=== PATIENT | male | born 1965 | race African-American/Black ===

== ENCOUNTER 2016-11-05 10:30 | Observation (INO) | payer BC ==
[~2016-11-05] VITALS: Ht 185.4 cm; Wt 70.0 kg
[~2016-11-05 10:30] MED LIST: BENZ100 PO
[2016-11-05 10:32] VITALS: BP 120/62; PULSE 86; RESP 16; TEMP 98; O2SAT 97
[2016-11-05 11:04] VITALS: BP 117/72; PULSE 74; RESP 20; TEMP 97.5; O2SAT 95
[2016-11-05 11:09] LABS: AUTOMATED NEUTROPHIL # 0.8 TH/MM3 (1.8-7.7); BASOPHIL % 0.8 % (0.0-2.0); EOSINOPHIL # 0.1 TH/MM3 (0-0.4); EOSINOPHIL % 2.1 % (0.0-4.0); LYMPH % 54.4 % (9.0-44.0); LYMPHOCYTE # 1.5 TH/MM3 (1.0-4.8); MEAN CELL VOLUME 100.6 FL (80.0-100.0); MEAN CORPUSCULAR HEMOGLOBIN 34.3 PG (27.0-34.0); MEAN CORPUSCULAR HGB CONC 34.1 % (32.0-36.0); MONO % 13.6 % (0.0-8.0); NEUT % 29.1 % (16.0-70.0); PLATELET COUNT 167 TH/MM3 (150-450); RED BLOOD COUNT 4.17 MIL/MM3 (4.50-5.90); RED CELL DISTRIBUTION WIDTH 12.8 % (11.6-17.2); WHITE BLOOD COUNT 2.8 TH/MM3 (4.0-11.0)
[2016-11-05 11:10] LABS: HEMO FLAGS AUTO DIFF
[2016-11-05 11:23] LABS: ANION GAP 7 MEQ/L (5-15); BICARBONATE 28.6 MEQ/L (21.0-32.0); BLOOD UREA NITROGEN 7 MG/DL (7-18); CHLORIDE 106 MEQ/L (98-107); GLOMERULAR FILTRATION RATE 144 ML/MIN (>89); POTASSIUM 3.7 MEQ/L (3.5-5.1); SODIUM (NA) 142 MEQ/L (136-145)
--- NOTE | 2016-11-05 11:23 | PD ---
HPI Chief Complaint: Cardiac Complaint Time Seen by Provider: 11:22 Travel History International Travel<30 days: No Contact w/Intl Traveler<30days: No Traveled to known affect area: No History of Present Illness HPI 50-year-old male presents to the emergency department for evaluation of cough, left anterior chest pain and shortness of breath. Patient states that yesterday he began to have a dry nonproductive cough. States that when he coughs he has some mild shortness of breath. States that yesterday he also began to experience intermittent left anterior chest pain. Describes it as sharp and lasting about 1-3 seconds. Denies any aggravating or alleviating factors. Denies any radiation of pain. Denies any associated lightheadedness, dizziness, nausea, vomiting, diaphoresis. The patient states he was seen here about a month ago for a cough and was told that he had bronchitis, states that his cough had resolved until yesterday. He does admit to smoking about a half a pack of cigarettes per day for the past 15 years but states he quit smoking 3 weeks ago. Denies any history of hypertension, hyperlipidemia or heart disease. Denies any family history of heart disease. Denies any history of blood clots. No other complaints. PFSH Past Medical History Autoimmune Disease: No Cancer: No Cardiovascular Problems: No Endocrine: No Genitourinary: No Musculoskeletal: No Neurologic: No Psychiatric: No Reproductive: No Respiratory: No Immunizations Current: Yes Influenza Vaccination: No Social History Alcohol Use: Yes (beer/daily) Tobacco Use: No (quit x 3 weeks) Substance Use: No (hx MARIJUANA) Allergies-Medications (Allergen,Severity, Reaction): Coded Allergies: No Known Allergies (Verified , 11/05/16) Reported Meds & Prescriptions Reported Meds & Active Scripts Active Tessalon Perles (Benzonatate) 100 Mg Cap 200 Mg PO TID PRN Review of Systems Except as stated in HPI: all other systems reviewed are Neg Physical Exam Narrative GENERAL: Well-nourished and well-developed pleasant male patient in no acute distress who is nontoxic appearing. SKIN: Warm and dry. HEAD: Normocephalic and atraumatic. EYES: No injection, drainage, or hyphema noted. PERRLA. EOMI. ENT: No nasal drainage noted. Oropharynx is clear. NECK: Supple and the trachea is midline. CARDIOVASCULAR: Regular rate and rhythm. RESPIRATORY: Breath sounds are equal bilaterally with no accessory muscle use, wheezing, rhonchi, or crackles. GASTROINTESTINAL: Abdomen is soft, non-tender, and nondistended. MUSCULOSKELETAL: No obvious deformities, swelling, cyanosis, or ecchymosis is present throughout the upper and lower extremities. Patient has full range of motion without any signs of neurovascular compromise. NEUROLOGICAL: Awake, alert, and oriented. Normal speech and gait. Cranial nerves are grossly intact. Data Data Last Documented VS Vital Signs Date Time Temp Pulse Resp B/P Pulse Ox O2 Delivery O2 Flow Rate FiO2 11/05/16 11:04 97.5 74 20 117/72 95 Room Air Orders Electrocardiogram (11/05/16 10:37) Complete Blood Count With Diff (11/05/16 10:37) Basic Metabolic Panel (Bmp) (11/05/16 10:37) Ckmb (Isoenzyme) Profile (11/05/16 10:37) Troponin I (11/05/16 10:37) Chest, Single Ap (11/05/16 10:37) Influenzae A/B Antigen (11/05/16 10:59) D-Dimer (11/05/16 11:23) Prothrombin Time / Inr (Pt) (11/05/16 11:23) Act Partial Throm Time (Ptt) (11/05/16 11:23) CKMB (11/05/16 10:52) CKMB% (11/05/16 10:52) Sodium Chlor 0.9% 1000 Ml Inj (Ns 1000 M (11/05/16 11:59) Aspirin (Aspirin) (11/05/16 12:45) Labs Laboratory Tests Test 11/05/16 11/05/16 10:52 11:34 White Blood Count 2.8 TH/MM3 Red Blood Count 4.17 MIL/MM3 Hemoglobin 14.3 GM/DL Hematocrit 42.0 % Mean Corpuscular Volume 100.6 FL Mean Corpuscular Hemoglobin 34.3 PG Mean Corpuscular Hemoglobin 34.1 % Concent Red Cell Distribution Width 12.8 % Platelet Count 167 TH/MM3 Mean Platelet Volume 9.1 FL Neutrophils (%) (Auto) 29.1 % Lymphocytes (%) (Auto) 54.4 % Monocytes (%) (Auto) 13.6 % Eosinophils (%) (Auto) 2.1 % Basophils (%) (Auto) 0.8 % Neutrophils # (Auto) 0.8 TH/MM3 Lymphocytes # (Auto) 1.5 TH/MM3 Monocytes # (Auto) 0.4 TH/MM3 Eosinophils # (Auto) 0.1 TH/MM3 Basophils # (Auto) 0.0 TH/MM3 CBC Comment AUTO DIFF Differential Total Cells 100 Counted Neutrophils % (Manual) 32 % Lymphocytes % 60 % Monocytes % 7 % Neutrophils # (Manual) 0.9 TH/MM3 Myelocytes 1 % Differential Comment FINAL DIFF MANUAL Platelet Estimate NORMAL Platelet Morphology Comment NORMAL Sodium Level 142 MEQ/L Potassium Level 3.7 MEQ/L Chloride Level 106 MEQ/L Carbon Dioxide Level 28.6 MEQ/L Anion Gap 7 MEQ/L Blood Urea Nitrogen 7 MG/DL Creatinine 0.70 MG/DL Estimat Glomerular Filtration 144 ML/MIN Rate Random Glucose 123 MG/DL Calcium Level 8.5 MG/DL Total Creatine Kinase 992 U/L Creatine Kinase MB 19.2 NG/ML Creatine Kinase MB % 1.9 % Troponin I LESS THAN 0.02 NG/ML Prothrombin Time 11.7 SEC Prothromb Time International 1.1 RATIO Ratio Activated Partial 25.0 SEC Thromboplast Time D-Dimer Quantitative (PE/DVT) 0.33 MG/L FEU MDM Medical Decision Making Medical Screen Exam Complete: Yes Emergency Medical Condition: Yes Differential Diagnosis Pleurisy versus bronchitis versus pneumonia versus ACS unlikely versus PE unlikely Narrative Course 50-year-old male presents to the emergency department for evaluation of cough and sharp chest pain. Patient is afebrile, vital signs are stable. Physical examination is unremarkable. Patient appears well overall. IV access is obtained, labs have been drawn and sent. EKG shows sinus rhythm with no acute ST elevations or depressions. I reviewed the EMR which shows he was admitted to our hospital 5 years ago for similar complaints with elevated CK, had a negative treadmill stress test at that time. He works in [employer] business has been slow recently and reports he remains hydrated throughout his day. Chest x-ray is negative for any acute abnormalities. CBC is unremarkable for any acute abnormalities. CMP shows elevated CK of 992, elevated CK-MB of 19.2 Troponin is less than 0.02 Coags are unremarkable. D-dimer is negative. Patient has remained stable and without complaint while here in the emergency department. Because the patient has a complaint of chest pain and an elevated CK and CK-MB he will need to be admitted for repeat cardiac enzymes and possible stress testing. Patient is agreeable with this plan. I discussed the case with my attending physician Dr. Rouse who is aware of the patients history, physical examination findings, and treatment plan. Physician Communication Physician Communication I spoke with Dr. Horan [facility] who agrees to admit the patient to his service. Diagnosis Primary Impression: Chest pain Qualified Code: R07.9 - Chest pain, unspecified type Additional Impression: Elevated CK-MB level Admitting Information Admitting Physician Requests: Observation Julissa Esparza Nov 05, 2016 11:23
[2016-11-05 11:27] LABS: CREATINE KINASE 992 U/L (39-308)
[2016-11-05 11:39] LABS: CKMB 19.2 NG/ML (0.5-3.6)
--- NOTE | 2016-11-05 11:49 | RADRPT ---
EXAM DATE/TIME: 11/05/2016 10:54 [facility] COMPARISON: CHEST SINGLE AP, March 03, 2016, 2:33. INDICATIONS : Chest pain. MEDICAL HISTORY : None. SURGICAL HISTORY : None. ENCOUNTER: Initial ACUITY: 2 days PAIN SCORE: 7/10 LOCATION: Left upper chest FINDINGS: A single view of the chest demonstrates the lungs to be symmetrically aerated without evidence of mas s, infiltrate or effusion. The cardiomediastinal contours are unremarkable. Osseous structures are intact. CONCLUSION: Normal examination. No significant change has occurred. Royer Hartley MD on November 05, 2016 at 11:47 Board Certified Radiologist. This report was verified electronically.
[2016-11-05 11:53] LABS: MYELOCYTES 1 % (0-0); NEUTROPHIL # MANUAL DIFF 0.9 TH/MM3 (1.8-7.7); POLYS (SEG NEUTROPHILS) 32 % (16-70); WBC DIFF SAMPLE 100
[2016-11-05 11:54] LABS: PLATELET ESTIMATE SMEAR NORMAL (NORMAL); PLATELET MORPHOLOGY NORMAL (NORMAL); SCAN/DIFF FINAL DIFF MANUAL
[2016-11-05] MEDS ORDERED: SODIUM CHLOR 0.9% 1000 ML INJ 1,000 ML IV SCH (11:59)
[2016-11-05 12:02] LABS: INTERNATIONAL NORMALIZED RATIO 1.1 RATIO; PROTHROMBIN TIME - PATIENT 11.7 SEC (9.8-11.6)
[2016-11-05] MEDS ORDERED: ASPIRIN 325 MG TAB PO ONE (12:45)
[2016-11-05] MEDS: ENOXAPARIN SODIUM 40 MG/0.4 ML SYRINGE SQ SCH ×2 (13:00→13:19)
[2016-11-05] MEDS ORDERED: SODIUM CHLORIDE 0.9% FLUSH 5 ML FLUSH FLUSH PRN (13:00)
[2016-11-05] MEDS ORDERED: ONDANSETRON HCL 4 MG/2 ML VIAL IVP PRN (13:00)
[2016-11-05] MEDS ORDERED: MAGNESIUM HYDROXIDE SUSP 30 ML CUP PO PRN (13:00)
[2016-11-05] MEDS ORDERED: BISACODYL 10 MG SUPP PR PRN (13:00)
[2016-11-05] MEDS ORDERED: ACETAMINOPHEN 325 MG TAB PO PRN (13:00)
[2016-11-05] MEDS ORDERED: NALOXONE HCL 0.4 MG/ML AMP IV PRN (13:00)
[2016-11-05] MEDS ORDERED: guaiFENesin/CODEINE SYRUP 200 MG/20 MG/10 ML CUP PO PRN (13:15)
[2016-11-05] MEDS ORDERED: RESP: ALBUTEROL 2.5 MG/IPRATROPIUM 0.5 MG NEB (PRN) NEB (13:15)
[2016-11-05] MEDS ORDERED: AZITHROMYCIN 250 MG TAB PO ONE ×2 (14:30→16:00)
--- NOTE | 2016-11-05 14:54 | EKG ---
Date Performed: 11/05/2016 Time Performed: 10:46:46 PTAGE: 50 years EKG: Sinus rhythm LEFT ATRIAL ENLARGEMENT ABNORMAL ECG NO SIGNIFICANT CHANGE FROM PRIOR ELECTROCARDIOGRAM. PREVIOUS TRACING : 03/03/2016 02.37 DOCTOR: Lorenzo Olvera Interpretating Date/Time 11/05/2016 14:53:23
--- NOTE | 2016-11-05 16:34 | HHI.HP ---
[facility] Service [facility] Primary Care Physician No Primary Care Physician Admission Diagnosis Chest Pain, Elevated CK-MB Diagnoses: Chief Complaint: Chest pain Travel History International Travel<30 Days: No Contact w/Intl Traveler <30 Da: No Traveled to Known Affected Are: No History of Present Illness This is a 50-year-old patient who denies prior medical history. Patient reports approximately a month ago October 08, 2016 he was seen in the emergency department for cough and given Tessalon Perles. Patient reports he completed the Tessalon Perles 3 days ago and his cough returned. Patient reports his cough is productive of phlegm with black specks. Patient also quit smoking October 08, 2016. Patient does report occasional shortness of breath but does not seem to be related to exertion seems to be worse after coughing. Patient reports today while he was sitting at rest watching television he experienced left sided chest pain described as sharp and severe in nature last for approximately 15 seconds and resolves spontaneously. Patient denies radiation of the chest pain patient also denies associated symptoms such as shortness of breath nausea vomiting diaphoresis. Patient reports he was seen approximately 5 years ago for similar symptoms with no definite explanation of symptoms. Patient denies fevers chills nausea vomiting diarrhea constipation. Patient works as a major sales associate and does not experience chest pain or shortness of breath while working. Review of Systems Other All other systems reviewed and negative except as mentioned in history of present illness Past Family Social History Past Medical History Denies medical history does not take medications on daily basis Past Surgical History Denies prior surgeries Reported Medications Reports he does not take medications on a daily basis Does take Aleve occasionally for headache Allergies: Coded Allergies: No Known Allergies (Verified , 11/05/16) Active Ordered Medications Current Medications Medications (Trade) Dose Ordered Sig/Arti Route Start Time Stop Time Status Last Admin (NS Flush) 2 ml UNSCH PRN FLUSH 11/05/16 13:00 (NS Flush) 2 ml BID FLUSH 11/05/16 21:00 (Tylenol) 650 mg Q4H PRN PO 11/05/16 13:00 (Zofran Inj) 4 mg Q6H PRN IVP 11/05/16 13:00 (Dulcolax Supp) 10 mg DAILY PRN [place] 11/05/16 13:00 (Milk Of Magnesia Liq) 30 ml Q12H PRN PO 11/05/16 13:00 (Lovenox Inj) 40 mg Q24H SQ 11/05/16 13:00 (Narcan Inj) 0.4 mg UNSCH PRN IV 11/05/16 13:00 (Robitussin Ac 200-20 Mg/10 ml Liq) 10 ml Q6H PRN PO 11/05/16 13:15 (Aspirin) 325 mg DAILY PO 11/06/16 09:00 (Zithromax) 250 mg DAILY PO 11/06/16 09:00 11/10/16 08:59 Family History Father secondary to bronchitis and emphysema Social History Patient quit smoking October 08, 2016 Drinks 4 pack of beers per day Physical Exam Vital Signs Vital Signs Date Time Temp Pulse Resp B/P Pulse Ox O2 Delivery O2 Flow Rate FiO2 11/05/16 11:04 97.5 74 20 117/72 95 Room Air 11/05/16 10:32 98.0 86 16 120/62 97 Room Air Physical Exam GENERAL: This is a well-nourished, well-developed patient, in no apparent distress. SKIN: No rashes, ecchymoses or lesions. Cool and dry. NECK: Trachea midline. No JVD or lymphadenopathy. Supple, nontender, no meningeal signs. CARDIOVASCULAR: Regular rate and rhythm without murmurs, gallops, or rubs. RESPIRATORY: Clear to auscultation. Breath sounds equal bilaterally. No wheezes , rales, or rhonchi. GASTROINTESTINAL: Abdomen soft, non-tender, nondistended. No guarding. MUSCULOSKELETAL: Extremities without clubbing, cyanosis, or edema. No joint tenderness, effusion, or edema noted. No calf tenderness. Negative Homans sign bilaterally. NEUROLOGICAL: Awake and alert. No focal deficit appreciated. Motor and sensory grossly within normal limits. Five out of 5 muscle strength in all muscle groups. Normal speech. Laboratory Laboratory Tests Test 11/05/16 11/05/16 10:52 11:34 White Blood Count 2.8 Red Blood Count 4.17 Hemoglobin 14.3 Hematocrit 42.0 Mean Corpuscular Volume 100.6 Mean Corpuscular Hemoglobin 34.3 Mean Corpuscular Hemoglobin 34.1 Concent Red Cell Distribution Width 12.8 Platelet Count 167 Mean Platelet Volume 9.1 Neutrophils (%) (Auto) 29.1 Lymphocytes (%) (Auto) 54.4 Monocytes (%) (Auto) 13.6 Eosinophils (%) (Auto) 2.1 Basophils (%) (Auto) 0.8 Neutrophils # (Auto) 0.8 Lymphocytes # (Auto) 1.5 Monocytes # (Auto) 0.4 Eosinophils # (Auto) 0.1 Basophils # (Auto) 0.0 CBC Comment AUTO DIFF Differential Total Cells 100 Counted Neutrophils % (Manual) 32 Lymphocytes % 60 Monocytes % 7 Neutrophils # (Manual) 0.9 Myelocytes 1 Differential Comment FINAL DIFF MANUAL Platelet Estimate NORMAL Platelet Morphology Comment NORMAL Sodium Level 142 Potassium Level 3.7 Chloride Level 106 Carbon Dioxide Level 28.6 Anion Gap 7 Blood Urea Nitrogen 7 Creatinine 0.70 Estimat Glomerular Filtration 144 Rate Random Glucose 123 Calcium Level 8.5 Total Creatine Kinase 992 Creatine Kinase MB 19.2 Creatine Kinase MB % 1.9 Troponin I LESS THAN 0.02 Prothrombin Time 11.7 Prothromb Time International 1.1 Ratio Activated Partial 25.0 Thromboplast Time D-Dimer Quantitative (PE/DVT) 0.33 Date/Time Procedure Status Source Growth 11/05/16 11:43 Influenza Types A,B Antigen (JERALD) - Final Complete Nasal Washing NEGATIVE FOR FLU A AND B ANTIGEN.... Result Diagram: 11/05/16 1052 11/05/16 1052 Imaging Last Impressions Chest X-Ray 11/05/16 1037 Signed Impressions: Service Date/Time: Saturday, November 05, 2016 10:54 - CONCLUSION: Normal examination. No significant change has occurred. Royer Hartley MD Assessment and Plan Assessment and Plan This is a 50-year-old patient who denies prior medical history. Patient reports approximately a month ago October 08, 2016 he was seen in the emergency department for cough and given Tessalon Perles. Patient reports he completed the Tessalon Perles 3 days ago and his cough returned. Patient reports his cough is productive of phlegm with black specks. Patient also quit smoking October 08, 2016. Patient does report occasional shortness of breath but does not seem to be related to exertion seems to be worse after coughing. Patient reports today while he was sitting at rest watching television he experienced left sided chest pain. Chest pain rule out ACS Receiving aspirin in the emergency department will continue aspirin daily Continuous telemetry monitoring EKG reviewed by myself as well as Dr. Horan reveals sinus rhythm with and T- wave inversion in V1 and V2 Lipid panel in a.m. Plan on exercise stress test in a.m. Elevated total creatinine kinase 990 will recheck in a.m. Cough times one month Sputum culture Azithromycin by mouth Robitussin Duo nebs as needed DVT prophylaxis with Lovenox Discussed plan of care with patient, ER provider and RN Written by Olga Prasad, acting as scribe for Dr. Horan on 11/05/16 at 15 :34. The documentation accurately reflects the work performed [id number] by me on at 15:34. Olga Prasad Nov 05, 2016 16:34 Snehal Horan DO Nov 05, 2016 23:17
[2016-11-05 17:53] VITALS: BP 142/83; PULSE 63; O2SAT 95
[2016-11-05 19:32] VITALS: BP 129/70; PULSE 65; O2SAT 98
[2016-11-05 21:23] VITALS: BP 129/76; PULSE 61; RESP 18; TEMP 97.6; O2SAT 98
[2016-11-05] MEDS: SODIUM CHLORIDE 0.9% FLUSH 5 ML FLUSH FLUSH SCH (23:36)
[2016-11-06 00:20] VITALS: BP 128/76; PULSE 84; RESP 18; TEMP 97.9; O2SAT 97
[2016-11-06 04:47] VITALS: BP 129/76; PULSE 87; RESP 18; TEMP 97.8; O2SAT 97
[2016-11-06 08:04] VITALS: PULSE 60
[2016-11-06] MEDS: SODIUM CHLORIDE 0.9% FLUSH 5 ML FLUSH FLUSH SCH (08:13)
--- NOTE | 2016-11-06 08:20 | HHI.PR ---
Subjective Remarks Follow up for left sided sharp chest pain. No acute concerns. Denies any CP, SOB , fever, chills. Objective Vitals Vital Signs Date Time Temp Pulse Resp B/P Pulse Ox O2 Delivery O2 Flow Rate FiO2 11/06/16 04:47 97.8 87 18 129/76 97 11/06/16 00:20 97.9 84 18 128/76 97 11/05/16 21:23 97.6 61 18 129/76 98 11/05/16 19:33 67 16 98 Room Air 11/05/16 19:32 65 129/70 98 11/05/16 17:53 63 142/83 95 11/05/16 11:04 97.5 74 20 117/72 95 Room Air 11/05/16 10:32 98.0 86 16 120/62 97 Room Air Result Diagram: 11/05/16 1052 11/05/16 1052 Imaging Last Impressions Chest X-Ray 11/05/16 1037 Signed Impressions: Service Date/Time: Saturday, November 05, 2016 10:54 - CONCLUSION: Normal examination. No significant change has occurred. Royer Hartley MD Objective Remarks GENERAL: AOX3, NAD. SKIN: Warm and dry. HEAD: Normocephalic. EYES: No scleral icterus. No injection or drainage. NECK: Supple, trachea midline. No JVD or lymphadenopathy. CARDIOVASCULAR: Regular rate and rhythm without murmurs, gallops, or rubs. RESPIRATORY: Breath sounds equal bilaterally. No accessory muscle use. GASTROINTESTINAL: Abdomen soft, non-tender, nondistended. MUSCULOSKELETAL: No cyanosis, or edema. BACK: Nontender without obvious deformity. No CVA tenderness. Procedures Exercise stress test 11/06/2016. Normal stress test. A/P Assessment and Plan This is a 50-year-old patient who denies prior medical history. Patient reports approximately a month ago October 08, 2016 he was seen in the emergency department for cough and given Tessalon Perles. Patient reports he completed the Tessalon Perles 3 days ago and his cough returned. Patient reports his cough is productive of phlegm with black specks. Patient also quit smoking October 08, 2016. Patient does report occasional shortness of breath but does not seem to be related to exertion seems to be worse after coughing. Patient reports today while he was sitting at rest watching television he experienced left sided chest pain. Chest pain rule out ACS - Continue Aspirin 81mg Qday. - Troponins X 3 negative. - Normal stress test. - Acute bronchitis - we will finish course of Azithromycin - 3 more days of 250mg Qday. - Robitussin AC PRN. DVT prophylaxis with Lovenox while in the hospital. Discharge patient to home Condition on discharge: Improved Heart healthy Diet as tolerated Ad Angely activity Rx written: - Aspirin 81mg Qday. - Azithromycin 250mg Qday x 3 days - Robitussin AC PRN Follow-up with primary care physician within one week. Snehal Horan DO Nov 06, 2016 08:20
[2016-11-06 08:25] VITALS: BP 150/85; PULSE 65; RESP 18; O2SAT 98
[2016-11-06] MEDS ORDERED: AZITHROMYCIN 250 MG TAB PO SCH (09:00)
[2016-11-06] MEDS ORDERED: ASPIRIN 325 MG TAB PO SCH (09:00)
[2016-11-06 10:51] LABS: AUTOMATED NEUTROPHIL # 1.3 TH/MM3 (1.8-7.7); BASOPHIL % 0.7 % (0.0-2.0); EOSINOPHIL # 0.1 TH/MM3 (0-0.4); EOSINOPHIL % 1.7 % (0.0-4.0); HEMO FLAGS DIFF FINAL; LYMPH % 41.2 % (9.0-44.0); LYMPHOCYTE # 1.3 TH/MM3 (1.0-4.8); MEAN CELL VOLUME 101.9 FL (80.0-100.0); MEAN CORPUSCULAR HEMOGLOBIN 34.4 PG (27.0-34.0); MEAN CORPUSCULAR HGB CONC 33.8 % (32.0-36.0); MONO % 13.6 % (0.0-8.0); NEUT % 42.8 % (16.0-70.0); PLATELET COUNT 168 TH/MM3 (150-450); RED BLOOD COUNT 4.52 MIL/MM3 (4.50-5.90); RED CELL DISTRIBUTION WIDTH 12.8 % (11.6-17.2); WHITE BLOOD COUNT 3.1 TH/MM3 (4.0-11.0)
[2016-11-06 11:14] LABS: BICARBONATE 30.6 MEQ/L (21.0-32.0); POTASSIUM 3.9 MEQ/L (3.5-5.1)
[2016-11-06 11:18] LABS: HDL CHOLESTEROL 71.7 MG/DL (40.0-60.0)
[2016-11-06 11:43] LABS: CKMB 15.9 NG/ML (0.5-3.6)
[2016-11-06 12:23] VITALS: BP 134/72; PULSE 60; RESP 20; O2SAT 95
[2016-11-06] MEDS: ENOXAPARIN SODIUM 40 MG/0.4 ML SYRINGE SQ SCH (13:00)
--- NOTE | 2016-11-06 14:26 | TR ---
Date Performed: 11/06/2016 Time Performed: 13:40:20 DOCTOR: Darryn Michel DRUG LIST: CLINICAL HISTORY: CHEST PAIN REASON FOR TEST: REASON FOR ENDING: OBSERVATION: CONCLUSION: YARED PROTOCOL. NO CP. TEST STOPPED AFTER EXCEEDING GOAL HR SECONDARY TO SOB AND LEG FATIGUE. GOOD EXERCISE TOLERANCE.Maximum YM=868 % Max HR Umulkjng=856.0% Maximum WY=995/74 Total Exe rcise Time=10:00 COMMENTS: Patient exercised using the Yared protocol. No electrocardiographic changes were seen to suggest ischemia. Hemodynamic response to exercise was normal. No significant arrhythmia was prese nt.
[2016-11-06 15:39] VITALS: BP 126/67; PULSE 60; RESP 18; O2SAT 95
[2016-11-06] MEDS ORDERED: ASPI81TA11 PO (15:43)
[2016-11-06] MEDS ORDERED: ZITH250T PO (15:43)
[2016-11-06] MEDS ORDERED: GUAI100S5 PO (15:43)
--- NOTE | 2016-11-06 16:22 | EKG ---
Date Performed: 11/05/2016 Time Performed: 17:47:07 PTAGE: 50 years EKG: Sinus rhythm POSSIBLE LEFT ATRIAL ENLARGEMENT Compared to prior tracing no significant change BORDERLINE ECG PREVIOUS TRACING : 11/05/2016 10.46 DOCTOR: Pastor Acosta Interpretating Date/Time 11/06/2016 16:20:48
--- NOTE | 2016-11-06 16:23 | EKG ---
Date Performed: 11/05/2016 Time Performed: 23:34:22 PTAGE: 50 years EKG: SINUS BRADYCARDIA POSSIBLE LEFT ATRIAL ENLARGEMENT Compared to prior tracing no significant change BORDERLINE ECG PREVIOUS TRACING : 11/05/2016 17.47 DOCTOR: Pastor Acosta Interpretating Date/Time 11/06/2016 16:21:07
== END 2016-11-06 17:35 | disposition home or self-care (01) ==
LOC: NEPC 10:30 → NEDA 12:58 → NEPGCP 20:13
PROVIDERS: ADMIT Hospitalist; ATTEND Hospitalist
DX: R07.9 Chest pain, unspecified (principal); J20.9 Acute bronchitis, unspecified; R94.31 Abnormal electrocardiogram [ECG] [EKG]; Z87.891 Personal history of nicotine dependence
CPT/HCPCS: 71010; 80048; 80061; 82550; 82552; 84484; 85007; 85025; 85027; 85379; 85610; 85730; 87804; 93005; 93017; 99285; G0378; J7030; J1650